=== PATIENT | male | born 1945 | race African-American/Black ===

== ENCOUNTER 2019-03-05 09:40 | Observation (INO) ==
[2019-03-05] MEDS ORDERED: ACETAMINOPHEN 325 MG TABLET PO PRN (13:40)
[2019-03-05] MEDS ORDERED: ONDANSETRON 4 MG/2 ML VIAL IV PRN (13:40)
[2019-03-05] MEDS ORDERED: NITROGLYCERIN SL 0.4 MG TABLET SL PRN (14:19)
[2019-03-05 15:07] LABS: Basophils % 0.6 % (0.0-0.8); Eosinophils # 0.1 10*3/uL (0.0-0.87); Eosinophils % 1.5 % (0.00-10.9); Hematocrit 43.5 VOL% (42.0-52.0); Hemoglobin 13.8 GM/DL (14.0-18.0); Immature Granulocytes % 0.4 %; Immature Granulocytes Absolute 0.02 #; Lymphocytes # 1.5 10*3/uL (1.4-4.0); Lymphocytes % 30.8 % (21.2-54.2); Mean Corpuscular HGB Conc 31.7 GM/DL (32-36); Mean Corpuscular Volume 92.6 FL (87-102); Monocytes % 9.4 % (1.7-12.7); Neutrophils % 57.3 % (38.7-73.9); Platelet Count 324 T/CUMM (130-400); Red Cell Distribution Width 12.1 % (9.3-17.3); White Blood Count 4.8 T/CUMM (4-12)
[2019-03-05 15:24] LABS: Calcium 8.9 MG/DL (8.5-10.1); Osmolality,Calculated 276.4 MOS/KG (273-304)
[2019-03-05 15:28] LABS: Troponin I < 0.015 NG/ML (0.00-0.045)
[2019-03-05 15:28] LABS: Amorphous Crystals,Urine Occasional /HPF (Few); Apearance,Urine CLOUDY (Clear); Bacteria,Urine Occasional /HPF (Few); Bilirubin,Urine Negative (Negative); Blood, Urine Negative (Negative); Glucose,Urine (UA) Negative (Negative); Ketones,Urine Negative (Negative); Mucus,Urine Occasional /LPF (Occasional); Nitrite,Urine Negative (Negative); Protein,Urine Negative; RBC,Urine 7 /HPF (0-4); Urine Color Yellow (Yellow); Urine Specific Gravity 1.015 (1.001-1.035); Urine Urobilinogen < 2.0 EU/DL (0.2-1.0); WBC,Urine 15 /HPF (0-6)
[2019-03-05 17:32] LABS: Troponin I < 0.015 NG/ML (0.00-0.045)
[2019-03-05] MEDS: PANTOPRAZOLE 40 MG TABLET PO SCH (20:58)
[2019-03-05 21:31] LABS: Troponin I < 0.015 NG/ML (0.00-0.045)
[2019-03-06 04:38] LABS: Basophils % 0.2 % (0.0-0.8); Eosinophils # 0.1 10*3/uL (0.0-0.87); Eosinophils % 2.2 % (0.00-10.9); Hematocrit 44.7 VOL% (42.0-52.0); Hemoglobin 13.8 GM/DL (14.0-18.0); Immature Granulocytes % 0.2 %; Immature Granulocytes Absolute 0.01 #; Lymphocytes # 1.5 10*3/uL (1.4-4.0); Lymphocytes % 30.2 % (21.2-54.2); Mean Corpuscular HGB Conc 30.9 GM/DL (32-36); Mean Corpuscular Volume 92.9 FL (87-102); Monocytes % 10.3 % (1.7-12.7); Neutrophils % 56.9 % (38.7-73.9); Platelet Count 303 T/CUMM (130-400); Red Blood Count 4.81 MC/CUMM (3.8-5.5); White Blood Count 4.9 T/CUMM (4-12)
[2019-03-06 04:57] LABS: Calcium 8.8 MG/DL (8.5-10.1); Osmolality,Calculated 280.3 MOS/KG (273-304); Thyroid Stimulating Hormone 3.75 uIU/ml (0.358-3.74); VLDL CHOLESTEROL 15.8 MG/DL
[2019-03-06] MEDS ORDERED: PANTOPRAZOLE 40 MG TABLET PO SCH (09:00)
[2019-03-06] MEDS ORDERED: ASPIRIN EC 81 MG TABLET PO SCH (09:00)
[2019-03-06] MEDS ORDERED: amLODIPine 5 MG TABLET PO SCH (09:00)
[2019-03-06] MEDS ORDERED: ATORVASTATIN 10 MG TABLET PO SCH (09:00)
[2019-03-06] MEDS: PANTOPRAZOLE 40 MG TABLET PO SCH (10:33)
[2019-03-06 12:34] VITALS: BP 133/75
== END 2019-03-06 15:46 | disposition home or self-care (01) ==
LOC: EDBD → SUATTDRO 11:35 → N.TELEN 11:35 → INTOOBSV 11:35
PROVIDERS: ADMIT Internal Medicine; ATTEND Internal Medicine